=== PATIENT | female | born 1960 | race Caucasian/White ===

== ENCOUNTER 2023-04-26 06:27 | Emergency (ER) | payer OTHER, SELFPAY ==
[2023-04-26 06:32] VITALS: BP 138/88; PULSE 67; RESP 18; TEMP 36.4; O2SAT 98; BMI 24.6
--- NOTE | 2023-04-26 06:38 | CRLHL7_ITS ---
For Patients: As a result of the Cures Act, medical imaging exams and procedure reports are released immediately into your electronic medical record. You may view this report before your referring provider. If you have questions, please contact your health care provider. Indication: Pain and injury Technique: Three views Comparison: None Findings/Impression: Bones: Alignment is normal. No fractures or bone lesions. Joint spaces: Unremarkable. Soft tissues: Unremarkable. Dictated by Shane Thomas MD @ 04/26/2023 7:19:54 AM (Electronically Signed)
--- NOTE | 2023-04-26 06:47 | ED.UPPEXIN ---
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 When she was going to return she thinks that she tripped over a pipe and fell hurting her right knee as well as her right wrist. In regards to her right wrist she is demonstrating hyper extension. She notes that there is an area of redness on the underside of her wrist and feels as if there is starting to be thickening or swelling in the area. She notes that when this initially happened she had a pain shoot up toward her elbow. She has no numbness or tingling of the fingers right now. As soon as she could she put an ice pack on her wrist. She has not yet taken any ibuprofen or Tylenol. Patient also notes bruising on the top of her right knee. She has been able to ambulate on her leg. She is not currently on any blood thinners. Denies hitting her head or any neck pain. Related Data Home Medications Medication Instructions Recorded Confirmed buspirone 10 mg tablet 10 mg PO BID 04/26/23 04/26/23 chlorthalidone 25 mg tablet 25 mg PO DAILY 04/26/23 04/26/23 losartan 50 mg tablet 50 mg PO DAILY 04/26/23 04/26/23 sertraline 100 mg tablet 150 mg PO DAILY 04/26/23 04/26/23 tramadol 50 mg tablet 50 mg PO Q6H PRN pain 04/26/23 04/26/23 Allergies Allergy/AdvReac Type Severity Reaction Status Date / Time No Known Drug Allergies Allergy Verified 04/26/23 06:37 Review of Systems Status of ROS: Reports: 6 or more systems reviewed and unremarkable except as noted in History and below ENMT: Denies: neck pain Musculo: Denies: neck pain Neuro: Denies: headache PFSH PFSH Social History Smoking Status: Never smoker How often do you have a drink containing alcohol: never AUDIT-C Alcohol total score: 0 Non-prescribed substance use: denies use Exam Narrative: Exam Narrative: Patient is alert and oriented. Very pleasant woman and is a good historian. Mentating normally. Examination of the right upper extremity shows no discomfort with palpation over the fingers metacarpals. Questionable slight tenderness in the anatomical snuffbox. There is a linear erythematous vinny on the volar medial wrist. No bleeding at this time. Patient has tenderness over the dorsum of the wrist itself. No ecchymosis is noted. No swelling of the hands at this time. Legal Cashier strength is present but because of discomfort is diminished. Good capillary refill is noted. Patient is demonstrating flexion extension at the wrist and does complain of increased pain with extension. Examination of the right knee shows ecchymosis starting to form on the superior aspect of the patella. There is some superficial abrasion but no open sores. Patient is able to ambulate. Extension and flexion fully intact. Const: Vital Signs, click to edit/add: Vital Signs - 24 hr 04/26/23 06:32 Temperature 97.6 F Pulse Rate [Pulse Oximeter] 67 Respiratory Rate 18 Blood Pressure [Ri ght Upper Arm] 138/88 Pulse Oximetry 98 Oxygen Delivery Me thod Room Air Documenting provider has reviewed patient's vital signs: yes Course Vital Signs Vital signs: Initial Vital Signs Temperature 97.6 F 04/26/23 06:32 Temperature Source Temporal Artery Scan 04/26/23 06:32 Pulse Rate 67 04/26/23 06:32 Respiratory Rate 18 04/26/23 06:32 Blood Pressure 138/88 04/26/23 06:32 Blood Pressure Mean 104 04/26/23 06:32 Blood Pressure Position Sitting 04/26/23 06:32 Pulse Oximetry 98 04/26/23 06:32 Oxygen Delivery Method Room Air 04/26/23 06:32 Vital Signs Temperature 97.6 F 04/26/23 06:32 Pulse Rate 67 04/26/23 06:32 Respiratory Rate 18 04/26/23 06:32 Blood Pressure 138/88 04/26/23 06:32 Pulse Oximetry 98 04/26/23 06:32 Oxygen Delivery Method Room Air 04/26/23 06:32 Temperature 97.6 F 04/26/23 06:32 Pulse Rate 67 04/26/23 06:32 Respiratory Rate 18 04/26/23 06:32 Blood Pressure 138/88 04/26/23 06:32 Pulse Oximetry 98 04/26/23 06:32 Oxygen Delivery Method Room Air 04/26/23 06:32 MDM - Extremity Injury (Upper) MDM Narrative Medical decision making narrative: 1. Right wrist injury-no evidence bony injury on x-ray. Patient was placed in a thumb spica splint. Encouraged to continue to ice. May remove this splint tomorrow if pain has resolved. If pain continues recommend replacing splint and following up with [facility] or clinic [facility]. May use ibuprofen or Tylenol as needed for pain. Received Tylenol in the ED today. Tetanus last updated in 2019. 2. Right knee injury- 3. Disposition -home at this time. Note for no use of the right arm for today. Return to the emergency room as needed. Medical Records Attestation: I reviewed the patient's medical records. Imaging Data Right wrist x-ray: Attestation: I have reviewed the pertinent imaging results. My impression: By my read did not note any fractures Radiologist's impression: Findings/Impression: Bones: Alignment is normal. No fractures or bone lesions. Joint spaces: Unremarkable. Soft tissues: Unremarkable. Discharge Plan Discharge Clinical Impression: Sprain and strain of wrist Patient Disposition: Home, Self-Care Condition: Improved Additional Instructions: You may continue to ice around the splint. Leave splint on for 24 hours. You may remove this tomorrow and if you are feeling okay and there is no pain then you do not have to reapply the splint. If you have worsening discomfort have a difficulty moving the wrist then I would ask you to reapply the splint with its Devon wrap. And then would follow-up with orthopedics. The phone number is [phone]. Ibuprofen or Tylenol as needed for discomfort. Prescriptions: No Action losartan 50 mg tablet 50 mg PO DAILY sertraline 100 mg tablet 150 mg PO DAILY chlorthalidone 25 mg tablet 25 mg PO DAILY tramadol 50 mg tablet 50 mg PO Q6H PRN (Reason: pain) buspirone 10 mg tablet 10 mg PO BID Follow Up/Referrals: Ludin Clement MD [Primary Care Provider] - Stand Alone Forms: [employer] Info Instructions
[2023-04-26] MEDS: ACETAMINOPHEN 500 MG TABLET 1000 MG PO (07:02)
== END 2023-04-26 07:43 | disposition home or self-care (01) ==
PROVIDERS: Emergency Provider Family Medicine; PCP Family Medicine
DX: S63.501A Unspecified sprain of right wrist, initial encounter (principal); W01.0XXA Fall on same level from slipping, tripping and stumbling without subsequent striking against object, initial encounter
CPT/HCPCS: 29125; 73110; 99283; A9270